=== PATIENT | female | born 1995 | race Two or more races ===

== ENCOUNTER 2018-03-24 09:51 | Emergency (ER) | payer SELFPAY ==
[~2018-03-24] VITALS: Ht 165.1 cm; Wt 70.3 kg
[2018-03-24 10:10] VITALS: BP 148/89
[2018-03-24] MEDS ORDERED: HYDROcodone-ACET 10/325MG TAB PO ONE (10:30)
== END 2018-03-24 11:44 | disposition home or self-care (01) ==
LOC: EDBD 09:51 → ER 09:58
DX: S00.83XA Contusion of other part of head, initial encounter (principal); S63.616A Unspecified sprain of right little finger, initial encounter; V43.53XA Car driver injured in collision with pick-up truck in traffic accident, initial encounter; Y93.89 Activity, other specified; Y99.8 Other external cause status; Y92.410 Unspecified street and highway as the place of occurrence of the external cause
CPT/HCPCS: 70486; 73130